=== PATIENT | female | born 1990 | race Caucasian/White ===

== ENCOUNTER 2022-11-24 08:21 | Emergency (ER) | payer BC ==
[~2022-11-24] VITALS: Ht 160 cm; Wt 47.6 kg
--- NOTE | 2022-11-24 08:50 | NUR ---
bibfather, anxiety attack, not sleeping for 2 days,hearing voices,denies SI. [facility]
--- NOTE | 2022-11-24 08:50 | NUR ---
DR BURNETT AT BEDSIDE FOR EVAL.
[2022-11-24] MEDS ORDERED: diphenhydrAMINE HCL 50 MG/ML VIAL IM ONE (09:00)
[2022-11-24] MEDS ORDERED: OLANZAPINE 10 MG VIAL IM ONE ×2 (09:00→09:03)
[2022-11-24] MEDS ORDERED: LORAZEPAM INJ 2 MG/ML VIAL IM ONE (09:00)
[2022-11-24] MEDS ORDERED: LORAZEPAM INJ 2 MG/ML VIAL ONE (09:03)
[2022-11-24] MEDS ORDERED: diphenhydrAMINE HCL 50 MG/ML VIAL ONE (09:03)
[2022-11-24 09:06] LABS: BILIRUBIN,URINE 1+ (NEGATIVE); COLOR,URINE YELLOW (YELLOW); LEUKOCYTE ESTERASE ,URINE NEGATIVE (NEGATIVE); NITRITE, URINE NEGATIVE (NEGATIVE); PROTEIN,URINE NEGATIVE (NEGATIVE); UGLUCOSE NEGATIVE (NEGATIVE); UROBILINOGEN,URINE 0.2 EU/dL (0.2)
--- NOTE | 2022-11-24 09:07 | NUR ---
APLIED SOFT RESTRAINS 2 POINTS
[2022-11-24 09:08] LABS: BACTERIA,URINE Rare /HPF (None Seen); RBC,URINE 0-2 /HPF (0-2); SQUAMOUS EPITHELIAL CELL,UR Few /HPF (None Seen)
[2022-11-24 09:28] LABS: BASOPHILS % (AUTO) 0.6 % (0.0-2.0); EOSINOPHILS % (AUTO) 1.1 % (0.0-6.0); HEMATOCRIT 43 % (33-45); HEMOGLOBIN 14.4 g/dL (11.5-14.8); LYMPHOCYTES # (AUTO) 1.1 K/uL (0.8-4.8); MEAN CORPUSCULAR HGB CONC 33 g/dl (31.0-36.0); MEAN CORPUSCULAR VOLUME 91 fL (82-100); MONOCYTES # (AUTO) 0.2 K/uL (0.1-1.30); MONOCYTES % (AUTO) 4.7 % (2.0-12.0); NEUTROPHILS # (AUTO) 3.1 K/uL (1.8-8.9); NEUTROPHILS % (AUTO) 69.6 % (43.0-81.0); PLATELET COUNT (AUTO) 258 K/uL (150-450); RED BLOOD CELL COUNT(AUTO) 4.78 MIL/uL (4.0-5.2); WHITE BLOOD COUNT (AUTO) 4.5 K/uL (4.3-11.0)
[2022-11-24 09:51] LABS: CALCIUM, SERUM 9.3 mg/dL (8.5-10.1); CARBON DIOXIDE 23 mmol/L (21-32); CHLORIDE 105 mmol/L (98-107); CREATININE 0.5 mg/dL (0.6-1.3); GLUCOSE 104 mg/dL (74-106); POTASSIUM 3.8 mmol/L (3.5-5.1); SODIUM SERUM 138 mmol/L (136-145); UREA NITROGEN, BLOOD 6 mg/dL (7-18)
[2022-11-24 09:55] LABS: ALANINE AMINOTRANSFERASE 16 U/L (12-78); ALBUMIN 4.1 g/dL (3.4-5.0); ALKALINE PHOSPHATASE 43 U/L (46-116); ASPARTATE AMINOTRANSFERASE 10 U/L (15-37); BILIRUBIN,DIRECT 0.1 mg/dL (0.0-0.2); BILIRUBIN,TOTAL 0.6 mg/dL (0.2-1.0); TOTAL PROTEIN, SERUM 7.7 g/dL (6.4-8.2)
[2022-11-24 09:57] LABS: ALCOHOL, BLOOD < 3 mg/dL (0-10)
--- NOTE | 2022-11-24 13:09 | NUR ---
Patient Tranfers to outside Facility Physician:Dr. Lin accepting MD Location: [facility] [phone] for report. Entrance [phone] Celio
--- NOTE | 2022-11-24 13:12 | NUR ---
patient is going to [facility]
--- NOTE | 2022-11-24 13:17 | NUR ---
TRANSPORT [facility] ETA 1450 GOING TO [facility]
--- NOTE | 2022-11-24 14:16 | NUR ---
report given to Fran JAMES to continue care.
[2022-11-24 14:35] VITALS: BP 133/81
--- NOTE | 2022-11-24 14:37 | NUR ---
patient picked up by private ambulance going to [facility] in no distress, accompanied by 3 emt's.
== END 2022-11-24 14:37 ==
LOC: ER 08:51
DX: F23 Brief psychotic disorder (principal); F41.9 Anxiety disorder, unspecified; Z20.822 Contact with and (suspected) exposure to COVID-19
CPT/HCPCS: 99291; 96372 ×2; 85025; 80048; 80076; 84703; 81001; 36415; 87426; 80143; 80320; 80307; J2060; J1200; J3490; C9803; G0480